=== PATIENT | male | born 1960 | race Caucasian/White ===

== ENCOUNTER 2017-11-19 09:21 | Emergency (ER) | payer BC ==
[2017-11-19 09:42] VITALS: BP 162/94; PULSE 60; RESP 20; TEMP 98
[2017-11-19] MEDS ORDERED: DIPH,PERTUS(ACELL)TETVAC-LF 0.5 ML VIAL IM ONE (10:45)
--- NOTE | 2017-11-19 11:11 | ED ---
General Adult HPI - General Chief complaint: Skin/Abscess/Foreign Body Stated complaint: Fish Hook Stuck in Finger Time Seen by Provider: 11/19/17 10:35 Source: patient, RN notes reviewed Mode of arrival: ambulatory Limitations: no limitations - History of Present Illness Initial comments: 57-year-old male presented to the emergency room today with chief complaint of an injury with a fishhook stuck to the left middle finger. Patient states that he accidentally caught him self with the fishhook when he was cleaning it. Patient denies any other complaints or symptoms. States unsure of his tetanus status. Patient denies any recent fever, chills, shortness of breath, chest pain , back pain, abdominal pain, nausea or vomiting, numbness or tingling, dysuria or hematuria, constipation or diarrhea, headaches or visual changes, or any other complaints. - Related Data Previous Rx's Medication Instructions Recorded Amoxicillin/Potassium Clav 1 each PO Q12HR #20 tab 11/19/17 [Augmentin 875-125 Tablet] Allergies Allergy/AdvReac Type Severity Reaction Status Date / Time No Known Allergies Allergy Verified 11/19/17 09:42 Review of Systems ROS Statement: Those systems with pertinent positive or pertinent negative responses have been documented in the HPI. ROS Other: All systems not noted in ROS Statement are negative. Past Medical History Past Medical History: No Reported History History of Any Multi-Drug Resistant Organisms: None Reported Past Surgical History: No Surgical Hx Reported Past Psychological History: No Psychological Hx Reported Smoking Status: Current every day smoker Past Alcohol Use History: Occasional Past Drug Use History: None Reported General Exam - General Exam Comments Initial Comments: General: The patient is awake and alert, in no distress, and does not appear acutely ill. Neck: The neck is supple, there is no tenderness or JVD. Musculoskeletal: Full range motion. Sensation intact. Pulses 2+. Strength 5/ 5. Neurological: A&O x 3. CN II-XII intact, There are no obvious motor or sensory deficits. Coordination appears grossly intact. Speech is normal. Skin: There is no sign of a fishhook stuck in the distal aspect of the left ring finger. Psychiatric: Normal mood and affect. Limitations: no limitations Course Vital Signs 11/19/17 09:39 Temperature 98.0 F Pulse Rate 60 Respiratory 20 Rate Blood Pressure 162/94 O2 Sat by Pulse 98 Oximetry Procedures - Procedures Initial comment: Patient's left ring finger was anesthetized at the head of the metacarpal with 1 % lidocaine. Needle nose clear were used to push the russell through the skin and then was caught removing the back through. Patient tolerated procedure very well. There was cleaned with Betadine. Medical Decision Making - Medical Decision Making Patient's physical or Motrin emergency room and tetanus updated. Patient will be started on antibiotics cover for infection. Disposition Clinical Impression: [place] injury to finger Disposition: HOME SELF-CARE Condition: Good Instructions: Puncture Wound (ED) Additional Instructions: Please use medication as discussed. Please follow-up with family doctor in the next 2 days of symptoms have not improved. Please return to emergency room if the symptoms increase or worsen or for any other concerns. Prescriptions: Amoxicillin/Potassium Clav [Augmentin 875-125 Tablet] 1 each PO Q12HR #20 tab Is patient prescribed a controlled substance at d/c from ED?: No Referrals: None,Stated [Primary Care Provider] - 1-2 days Maynor Brady MD [STAFF PHYSICIAN] - 1-2 days Time of Disposition: 11:14
== END 2017-11-19 11:20 | disposition home or self-care (01) ==
LOC: EC 09:21
DX: S60.455A Superficial foreign body of left ring finger, initial encounter (principal); F17.200 Nicotine dependence, unspecified, uncomplicated; Z23 Encounter for immunization; W45.8XXA Other foreign body or object entering through skin, initial encounter; Y93.89 Activity, other specified; Y92.89 Other specified places as the place of occurrence of the external cause
CPT/HCPCS: 90471; 90715; 99283

== ENCOUNTER → 2024-12-02 | Outpatient (CLI) | payer BC ==
--- NOTE | 2024-12-03 18:37 | CTL ---
EXAMINATION TYPE: CT Low Dose Lung DATE OF EXAM: 12/02/2024 9:05 AM COMPARISON: None. SCREENING VISIT: Initial CT DIAGNOSTIC QUALITY: Satisfactory CLINICAL INDICATION: Male, 64 years old with history of Z12.2 LUNG CA SCR F17.210 CURRENT SMOKER, , L ivory cancer screening, History of tobacco use. TECHNIQUE: Low dose computed tomography scan was performed through the chest at 1 mm thick sections a nd reconstructed images in the coronal plane at 1 mm thick sections. Contrast used: mL of , (none if empty) Oral contrast used: (none if empty) CT DLP: 132 mGycm, Automated exposure control for dose reduction was used. CT CTDI: 3.6 mGy, Automated exposure control for dose reduction was used. FINDINGS: LUNG NODULES: Present, detailed below: 1. There is a 0.5 cm density at the right apex. Series 4 image 32. 2. Punctate densities are in the anterior right upper lung field. Series 4 image 34. Additional simil ar punctate peripheral densities are within the lung garcia. 3. There is a 0.3 cm peripheral nodular density right lung. Series 4 image 102. 4. There is a 1.1 cm density within the anterior left lung. Series 4 image 196. 5. There may be a contiguous 1.1 cm nodule adjacent to the above nodule. Series 4 image 190r LUNGS: COPD: Severity: None Fibrosis: Severity: None Lymph nodes: There is a 1.1 cm pretracheal lymph node. Multiple shotty aortopulmonic window lymph nod es are present. There is a 1.1 cm pretracheal node near the level of neyda. Other findings: None RIGHT PLEURAL SPACE: Effusion: None Calcification: None Thickening: None Pneumothorax: None LEFT PLEURAL SPACE: Effusion: None Calcification: None Thickening: None Pneumothorax: None HEART: Other: Ascending thoracic aorta at the level the main pulmonary artery measures 3.9 cm. The main pul monary artery at the bifurcation measures 2.7 cm. Heart Size: Normal Coronary calcification: Mild coronary artery calcifications present. Pericardial effusion: None OTHER FINDINGS: Upper abdomen: Normal Bony thorax: Normal Supraclavicular region: Normal IMPRESSION: There are two contiguous nodules in the anterior lung measuring 1 cm. Additional workup with PET CT i s recommended. FOLLOW UP CT CHEST RECOMMENDATION: 4A CT LUNG RAD: Lung-Rad 4A [facility], Workstation: [facility], 12/03/2024 6:35 PM
== END | disposition home or self-care (01) ==
LOC: RADCTMAIN 08:47
PROVIDERS: ATTEND Family Medicine
DX: Z12.2 Encounter for screening for malignant neoplasm of respiratory organs (principal); F17.210 Nicotine dependence, cigarettes, uncomplicated; R91.8 Other nonspecific abnormal finding of lung field
CPT/HCPCS: 71271

== ENCOUNTER → 2025-01-15 | Outpatient (CLI) | payer BC ==
--- NOTE | 2025-01-17 16:27 | PE ---
EXAMINATION TYPE: PET CT fusion skull to thigh DATE OF EXAM: 01/15/2025 CLINICAL INDICATION:Male, 64 years old with history of R91.1 lung nodule; TECHNIQUE: Following the intravenous administration of 11.28 mCi of F-18 FDG, whole body images are performed from the skull base to the Mid thigh. Images are reviewed on the computer in the coronal, axial, and sagittal planes. Reconstructed rotating images are created on independent workstation an d reviewed on the computer. A non-contrast CT is performed in conjunction with the PET scan. Glucos e level 98 mg/dL CT DLP: 941 mGycm, Automated exposure control for dose reduction was used. COMPARISON: CT 12/02/2024., PET/CT None, MRI: None FINDINGS: Mediastinal SUV mean is 2.1. Hepatic parenchyma SUV mean is 2.5. SKULL BASE AND NECK: * No suspicious radiotracer activity. * Right maxillary sinus uptake max SUV 6.6. CHEST, MEDIASTINUM, AND HILAR REGION: No suspicious radiotracer activity. * 10 mm left lingula groundglass/subsolid pulmonary nodule seen on prior exam max SUV 0.7. No additi onal FDG avid lymph nodes no lymphadenopathy which is FDG avid. * Small pulmonary nodules in the lung apices on prior exam are below the size limit for sensitivity for PET/CT. These should be followed with CT low dose exams. ABDOMEN AND PELVIS: No suspicious radiotracer activity. MUSCULOSKELETAL STRUCTURES: No suspicious radiotracer activity. Degenerative uptake within the left AC joint max SUV 3.9. OTHER CT: Colonic diverticulosis. Cervical vertebral thickening correlate for bladder all obstruction and/or cystitis. Left fat-containing inguinal hernia. Hepatic steatosis. Atherosclerosis of the sugey rial vasculature. Moderate coronary artery atherosclerosis. IMPRESSION: 1. No suspicious radiotracer activity. No pulmonary nodules with FDG activity below background level s. Surveillance CT imaging in 6 months recommended to ensure stability. 2. Limits of size uptake correlate for sinusitis. 3. Bladder wall thickening correlate with urinalysis for cystitis versus chronic bladder obstruction . Correlate with serum PSA. [facility], , 01/17/2025 4:24 PM
== END | disposition home or self-care (01) ==
LOC: RADPETMAIN 09:24
PROVIDERS: ATTEND Family Medicine
DX: R91.1 Solitary pulmonary nodule (principal); N32.89 Other specified disorders of bladder
CPT/HCPCS: 78815; A9552